=== PATIENT | female | born 1950 | race African-American/Black ===

== ENCOUNTER 2022-03-14 14:57 | Outpatient (REF) | payer MEDICARE, MEDICAID, SELFPAY ==
[2022-03-14 15:15] LABS: MANUAL DIFF FLAG NO
[2022-03-14 16:08] LABS: Basophils Percent Auto 0.5 % (0-2); Eosinophils Absolute Auto 0.2 X10*3/uL (0.0-0.4); Eosinophils Percent Auto 2.6 % (0-4); Hematocrit 43.2 % (37.0-47.0); Hemoglobin 14.4 g/dl (12.0-16.0); Imm Gran Abs Auto 0.01 X10*3/uL (0.00-0.03); Imm Gran Pct Auto 0.1 % (0.0-0.4); Lymphocytes Absolute Auto 2.7 X10*3/uL (1.2-4.9); Lymphocytes Percent Auto 31.3 % (20-40); Mean Corpuscular HGB Conc 33.3 g/dl (31.0-35.0); Mean Corpuscular Hemoglobin 30.2 pg (27.0-33.0); Mean Corpuscular Volume 90.6 fL (80.0-98.0); Mean Platelet Volume 10.4 fL (9.4-12.3); Monocytes Absolute Auto 0.8 X10*3/uL (0.1-1.2); Monocytes Percent Auto 9.3 % (2-11); Neutrophils Absolute Auto 4.8 x10*3/uL (2.0-8.3); Neutrophils Percent Auto 56.2 % (45-73); Platelet Count 307 X10*3/uL (160-400); Red Blood Count 4.77 X10*6/uL (4.20-5.50); Red Cell Distribution Width 13.9 % (11.0-16.0); White Blood Count 8.5 X10*3/uL (4.8-10.8)
[2022-03-14 16:34] LABS: Alanine Aminotransferase 10 U/L (0-31); Albumin Level 4.7 g/dL (3.5-5.0); Alkaline Phosphatase 128 U/L (39-117); Anion Gap 17 (12-20); Aspartate Amino Transferase 16 U/L (5-31); Bilirubin Total 0.2 mg/dL (0.0-1.0); Blood Urea Nitrogen 9 mg/dL (9-16); C Reactive Protein 0.36 mg/dL (< or = 0.50); Carbon Dioxide 26 mmol/L (22-29); Chloride 104 mmol/L (96-108); Estimated Glomerular Filt Rate > 60; Glucose Random 87 mg/dL (60-115); Phosphorus 3.5 mg/dL (2.7-4.5); Potassium 4.6 mmol/L (3.3-5.1); Sodium 142 mmol/L (135-145); Total Protein 7.7 g/dL (6.5-8.0)
[2022-03-14 16:43] LABS: Rheumatoid Factor < 15.0 IU/mL (<15.0)
[2022-03-14 16:45] LABS: Erythrocyte Sedimentation Rate 7 MM/HR (0-20)
[2022-03-14 16:52] LABS: TSH reflex Free T4 1.76 uIU/mL (0.32-4.0)
[2022-03-15 12:55] LABS: PTHI 81 pg/mL (16-77)
[2022-03-18 18:52] LABS: Cyclic Citrullinated Peptide <16 UNITS
[2022-03-20 16:51] LABS: Vitamin D 25-OH, D2 <4 ng/mL; Vitamin D 25-OH, D3 41 ng/mL; Vitamin D 25-OH, Total 41 ng/mL (30-100)
== END 2022-03-14 14:58 | disposition home or self-care (01) ==
LOC: HO.LAB 14:57
PROVIDERS: Visit Provider Student in an Organized Health Care Education/Training Program
DX: M81.0 Age-related osteoporosis without current pathological fracture (principal)
CPT/HCPCS: 36415; 80053; 82306; 83970; 84100; 84443; 85025; 85652; 86140; 86200; 86431; 99202

== ENCOUNTER → 2022-06-14 12:44 | Outpatient (BNVA) | payer MEDICARE, MEDICAID, SELFPAY | PROVIDERS: PCP Internal Medicine; Visit Provider Student in an Organized Health Care Education/Training Program | DX: M80.80XA Other osteoporosis with current pathological fracture, unspecified site, initial encounter for fracture (principal) | CPT/HCPCS: 99212 ==

== ENCOUNTER 2023-05-15 13:53 | Outpatient (AMB) | payer MEDICARE, MEDICAID, SELFPAY ==
--- NOTE | 2023-05-15 14:07 | A.OFFVIS_ITS ---
Intake Vital Signs 05/15/23 14:25 Height 5 ft 4 in Weight 163 lb 5.8 oz BMI 28.0 BP 110/70 Blood Pressure Location Lt brachial Position Sitting Pulse 91 Pulse Source Pulse Oximeter Temp 97.2 F Temp Source Skin Pulse Oximetry (%) 96 Oxygen Delivery Method Room Air Intake Visit Reasons: Osteoporosis Intake Note: Pt last seen 06/14/22 presents today for follow up and test results Loading Machine Tool Setter Required: Yes Loading Machine Tool Setter Name: Danilo [id number] Information Interpreted: clinical only Accompanied by: Spouse Allergies fentanyl Adverse Reaction (Unknown, Verified 05/15/23 14:08) Rash Penicillins Adverse Reaction (Unknown, Verified 05/15/23 14:08) Swelling Medication List - Last Reconciled 05/15/23 by Sterling Galindo MD acetaminophen ER (Mapap Arthritis Pain) 650 mg PO Q8H PRN baclofen 10 mg PO TID cetirizine 10 mg PO DAILY denosumab (Prolia) 60 mg subcut [id number] esomeprazole magnesium (Nexium) 20 mg PO DAILY famotidine 20 mg PO BID lamotrigine 50 mg PO BID tramadol 50 - 100 mg PO QID PRN HPI HPI Comments History of Present Illness Details This is a 73-year-old female with history of osteoporosis with fracture presents for follow-up. She has no complaints. She has been doing the Prolia injections at home. Most recent Prolia injection was March of 2023. Denies any side effects related to the Prolia. Has not had any recent falls or fractures. Initial history: This is a 71-year-old female with a past medical history of GERD, fibromyalgia and osteoporosis. Condition started in 1997 when she had vertebral fracture. She was diagnosed with osteoporosis. Around 2007 she was started on Fosamax but could not tolerate it due to GI upset. She was then switched to nasal calcitonin which she took for about 1 year, then switched to Forteo for 2 years. She noted that her bone density improved after the Forteo, she was then switched to nasal calcitonin for a 1 more year and another year on Boniva injection. She has not been on any osteoporosis medications since 2012. in winter she severe back pain and she was found to have another vertebral fracture. She is referred for evaluation of osteoporosis. Patient is a chronic smoker. Denies any chest pain shortness of breath. No history cardiovascular disease. [facility] Medical History Cervical disc disease Lumbar radiculopathy Fibromyalgia GERD (gastroesophageal reflux disease) Surgical History H/O cervical spine surgery Hx of cholecystectomy Hx of colonoscopy Family History Mother Aneurysm COPD (chronic obstructive pulmonary disease) Osteoporosis Father Cancer Other Coronary artery disease Hypertension Social History Household Members: Spouse Alcohol intake: current Alcohol intake frequency: does not drink Patient Tobacco Use Status: Current everyday Tobacco user Tobacco use type: Cigarette Cigarettes Per Day: 8 Current occupational status: retired Current occupation: [employer] Review of Systems Const All systems reviewed & are unremarkable except as noted in HPI and below Physical Exam Vital Signs: Last Vital Signs Temp 97.2 F 05/15/23 14:25 Pulse 91 05/15/23 14:25 BP 110/70 05/15/23 14:25 Pulse Ox 96 05/15/23 14:25 Oxygen Delivery Method Room Air 05/15/23 14:25 BMI result Body Mass Index 28.0 Const General: cooperative, healthy appearing, comfortable, no acute distress and well developed Nutritional Appearance: average body habitus Orientation/consciousness: patient oriented x3 Limitations: no limitations HEENT Head: Yes normocephalic and Yes atraumatic Mouth: Normal oral and palatal mucosa present Resp Effort & Inspection: normal respiratory effort and able to speak in complete sentences Auscultation: clear to auscultation bilaterally Cardio Rate: regular rate Rhythm: regular rhythm Heart sounds: S1 normal heart sound present and S2 normal heart sound present GI Inspection: No distended Palpation (GI): Soft to palpation and nontender Skin General skin exam: no rashes or lesions noted Neuro General: patient oriented x3 Extrem Other: mild osteoarthritic changes hands with no synovitis. Few fibromyalgia tender points Results Reviewed Results Reviewed: DEXA scan 10/2020 AP spine T-score -3.2 Femoral right T-score -2.2 Total hip right T-score -2.4 DEXA scan 09/2017 AP spine T-score -2.6 ?femoral Neck right -2.4 Total hip right -2.4 Assessment & Plan Assessment & Plan (1) Osteoporosis with fracture: Comment: Vertebral fracture 1997 Fosamax started 2007 caused GI upset Nasal calcitonin started 2007 for 1 year Switched to Forteo around [id number] nasal calcitonin 2011 to 2012 Boniva [phone]... Then nothing Vertebral fracture 2020 Prolia started 03/2022 Code(s): M80.80XA - Other osteoporosis with current pathological fracture, unspecified site, initial encounter for fracture Qualifiers: Osteoporosis type: age-related Site of pathological fracture: vertebra Encounter type: initial encounter Qualified Code(s): M80.08XA - Age-related osteoporosis with current pathological fracture, vertebra(e), initial encounter for fracture Plan: ?This is a 72-year-old female with osteoporosis with multiple fractures?presents for follow up. She has done 3 Prolia injections so far. Most recent injection was 03/2023. She does the injections at home. They get shipped to her home. Next injection 09/2022. Plan to repeat DEXA at 09/2022. Follow-up in October 2022. Labs before next visit If patient's bone density scan does not improve then will consider a more potent agent such as Romosuzumab Continue vitamin-D supplement Plan I spent 23 minutes reviewing patient's chart, evaluating patient, ordering diagnostic workup, counseling patient and documenting in the chart Orders: Orders Complete Blood Count Auto Diff 6 Months M80.80XA - Other osteoporosis with current pathological fracture, unspecified site, initial encounter for fracture Comprehensive Met. Panel 6 Months M80.80XA - Other osteoporosis with current pathological fracture, unspecified site, initial encounter for fracture XR DEXA axial skeleton 09/17/23 M80.80XA - Other osteoporosis with current pathological fracture, unspecified site, initial encounter for fracture Vitamin D 25-OH (D2 and D3) 6 Months Z13.21 - Encounter for screening for nutritional disorder Coding Level of Care Code Est Pt Level 4 (31982) Diagnoses Pathological fracture of vertebra due to age-related osteoporosis, initial encounter M80.08XA Osteoporosis type: age-related Site of pathological fracture: vertebra Encounter type: initial encounter
[2023-05-15 14:25] VITALS: BP 110/70; PULSE 91; TEMP 36.2; O2SAT 96; BMI 28.0
== END 2023-05-15 14:55 | disposition home or self-care (01) ==
PROVIDERS: PCP Internal Medicine; Visit Provider Student in an Organized Health Care Education/Training Program
DX: M80.08XA Age-related osteoporosis with current pathological fracture, vertebra(e), initial encounter for fracture (principal)
CPT/HCPCS: 99214

== ENCOUNTER → 2023-05-15 13:53 | Outpatient (BNVA) | payer MEDICARE, MEDICAID, SELFPAY | PROVIDERS: PCP Internal Medicine; Visit Provider Student in an Organized Health Care Education/Training Program | DX: M80.08XD Age-related osteoporosis with current pathological fracture, vertebra(e), subsequent encounter for fracture with routine healing (principal) | CPT/HCPCS: 99212 ==

== ENCOUNTER 2023-11-05 13:31 | Outpatient (REF) | payer MEDICARE, MEDICAID, SELFPAY ==
--- NOTE | ~2023-11-05 | MM_ITS ---
EXAMINATION: BONE DENSITOMETRY CLINICAL INDICATION: Other osteoporosis without current pathological fracture, unspecified. COMPARISON: This is the patient's baseline examination. TECHNIQUE: Using a Tablefinder DXA System (software version: 13.1) manufactured by [employer], dual-energy x-ray absorptiometry was performed of the lumbar spine and left hip. The images are of good technical quality. Summary results are attached. FINDINGS: LEFT FEMUR, NECK: BMD 0.713 g/cm2, Z-score -0.7, T-score -2.3, osteopenia. LEFT FEMUR, TOTAL: BMD 0.671 g/cm2, Z-score -1.3, T-score -2.7, osteoporosis. AP SPINE L1-L4: BMD 0.957 g/cm2, Z-score -0.4, T-score -1.9, osteopenia. IDENTIFIED RISK FACTORS: Anticonvulsant, height loss, history of fracture (adult), low calcium intake, early menopause, secondary osteoporosis, tobacco user (current smoker), osteoporosis. HISTORY OF FRACTURE: Spine. MEDICATIONS: Prolia, vitamin D. MM/XR DEXA axial skeleton IMPRESSION: 1. DIAGNOSIS: Severe osteoporosis based on the lowest T-score value of -2.7 in the total femur applying World Health Organization criteria. 2. 10-YEAR FRACTURE RISK PREDICTION, FRAX: According to the guidelines, FRAX calculation should only be performed on patients in the osteopenia bone density category. Therefore, FRAX was not performed on this patient.? 3. Treatment Recommendations: NOF guidelines recommend consideration for treatment in postmenopausal women and men age 50 and older presenting with the following: -A hip or vertebral (clinical or morphometric) fracture. -T-score less than or equal to -2.5 at the femoral neck or spine after appropriate evaluation to exclude secondary causes. -Low bone mass at the hip or spine and a 10-year fracture probability by FRAX of greater than or equal to 3% for hip fracture or greater than or equal to 20% for major osteoporotic fracture based on the [place] adapted WHO algorithm. 4. Other Recommendations: All treatment decisions require clinical judgment and consideration of individual patient factors, including patient preferences, comorbidities, previous drug use, risk factors not captured in the FRAX model (e.g. frailty, falls, vitamin D deficiency, increased bone turnover, interval significant decline in bone density) and possible under or overestimation of fracture risk by FRAX. Additional medical evaluation for secondary cause of low bone mineral density may be appropriate. FUTURE SCAN RECOMMENDATION: People with diagnosed cases of osteoporosis or at high risk for fracture should have regular bone mineral density tests. For patients eligible for Medicare, routine testing is allowed once every 2 years. The testing frequency can be increased to one year for patients who have rapidly progressing disease, those who are receiving or discontinuing medical therapy to restore bone mass, or have additional risk factors.
[2023-11-05 13:44] LABS: MANUAL DIFF FLAG NO
[2023-11-05 14:26] LABS: Basophils Percent Auto 0.5 % (0-2); Eosinophils Absolute Auto 0.3 X10*3/uL (0.0-0.4); Eosinophils Percent Auto 3.5 % (0-4); Hematocrit 43.5 % (37.0-47.0); Hemoglobin 14.6 g/dl (12.0-16.0); Imm Gran Abs Auto 0.02 X10*3/uL (0.00-0.03); Imm Gran Pct Auto 0.3 % (0.0-0.4); Lymphocytes Absolute Auto 2.4 X10*3/uL (1.2-4.9); Lymphocytes Percent Auto 30.6 % (20-40); Mean Corpuscular HGB Conc 33.6 g/dl (31.0-35.0); Mean Corpuscular Hemoglobin 30.9 pg (27.0-33.0); Mean Platelet Volume 9.9 fL (9.4-12.3); Monocytes Absolute Auto 0.8 X10*3/uL (0.1-1.2); Monocytes Percent Auto 10.2 % (2-11); Neutrophils Absolute Auto 4.2 x10*3/uL (2.0-8.3); Neutrophils Percent Auto 54.9 % (45-73); Platelet Count 274 X10*3/uL (160-400); Red Blood Count 4.73 X10*6/uL (4.20-5.50); Red Cell Distribution Width 13.9 % (11.0-16.0); White Blood Count 7.7 X10*3/uL (4.8-10.8)
[2023-11-05 14:49] LABS: Alanine Aminotransferase 12 U/L (0-31); Albumin Level 4.5 g/dL (3.5-5.0); Alkaline Phosphatase 85 U/L (39-117); Anion Gap 12 (12-20); Aspartate Amino Transferase 17 U/L (5-31); Bilirubin Total 0.4 mg/dL (0.0-1.0); Blood Urea Nitrogen 13 mg/dL (9-16); Calcium 9.4 mg/dL (8.4-10.2); Carbon Dioxide 26 mmol/L (22-29); Chloride 106 mmol/L (96-108); Estimated Glomerular Filt Rate > 60; Glucose Random 87 mg/dL (60-115); Potassium 4.3 mmol/L (3.3-5.1); Sodium 140 mmol/L (135-145); Total Protein 7.9 g/dL (6.5-8.0)
[2023-11-09 16:49] LABS: Vitamin D 25-OH, D2 <4 ng/mL; Vitamin D 25-OH, D3 40 ng/mL; Vitamin D 25-OH, Total 40 ng/mL (30-100)
== END 2023-11-05 13:32 | disposition home or self-care (01) ==
LOC: HO.MAMMO 13:31
PROVIDERS: PCP Internal Medicine; Visit Provider Student in an Organized Health Care Education/Training Program
DX: M80.08XA Age-related osteoporosis with current pathological fracture, vertebra(e), initial encounter for fracture (principal); Z13.21 Encounter for screening for nutritional disorder
CPT/HCPCS: 36415; 77080; 80053; 82306; 85025

== ENCOUNTER 2023-11-10 13:21 | Outpatient (AMB) | payer MEDICARE, MEDICAID, SELFPAY ==
--- NOTE | 2023-11-10 13:37 | MHC.OFFVIS ---
Vital Signs 11/10/23 13:38 Height 5 ft 4 in Weight 162 lb 0.636 oz BMI 27.8 BP 128/72 Blood Pressure Location Rt brachial Position Sitting Pulse 86 Pulse Source Pulse Oximeter Pulse Oximetry (%) 96 Oxygen Delivery Method Room Air Intake Visit Reasons: Osteoporosis/CM Intake Note: Pt seen today for Osteoporosis follow up. She does her Prolia at home. Dean Of Boys Required: Yes Dean Of Boys Name: [id number] Accompanied by: Spouse Allergies fentanyl Adverse Reaction (Unknown, Verified 11/10/23 13:52) Rash Penicillins Adverse Reaction (Unknown, Verified 11/10/23 13:52) Swelling Medication List - Last Reconciled 11/10/23 by Sterling Galindo MD acetaminophen ER (Mapap Arthritis Pain) 650 mg PO Q8H PRN baclofen 10 mg PO TID cetirizine 10 mg PO DAILY cholecalciferol (vitamin D3) 50 mcg PO DAILY esomeprazole magnesium (Nexium) 20 mg PO DAILY famotidine 20 mg PO BID lamotrigine 50 mg PO BID Prolia (denosumab) 60 mg subcut [id number] NS tramadol 50 - 100 mg PO QID PRN HPI Comments Details: This is a 73-year-old female with history of osteoporosis with fracture presents for follow-up. She has no complaints. She has been doing the Prolia injections at home. Most recent Prolia injection was 09/2022. Denies any side effects related to the Prolia. Has not had any recent falls or fractures. Initial history: This is a 71-year-old female with a past medical history of GERD, fibromyalgia and osteoporosis. Condition started in 1997 when she had vertebral fracture. She was diagnosed with osteoporosis. Around 2007 she was started on Fosamax but could not tolerate it due to GI upset. She was then switched to nasal calcitonin which she took for about 1 year, then switched to Forteo for 2 years. She noted that her bone density improved after the Forteo, she was then switched to nasal calcitonin for a 1 more year and another year on Boniva injection. She has not been on any osteoporosis medications since 2012. in winter of 2020 she severe back pain and she was found to have another vertebral fracture. She is referred for evaluation of osteoporosis. Patient is a chronic smoker. Denies any chest pain shortness of breath. No history cardiovascular disease. [facility] Medical History Cervical disc disease Lumbar radiculopathy Fibromyalgia GERD (gastroesophageal reflux disease) Surgical History H/O cervical spine surgery Hx of cholecystectomy Hx of colonoscopy Family History Mother Aneurysm COPD (chronic obstructive pulmonary disease) Osteoporosis Father Cancer Other Coronary artery disease Hypertension Social History Household Members: Spouse Alcohol intake: current Alcohol intake frequency: does not drink Patient Tobacco Use Status: Current everyday Tobacco user Tobacco use type: Cigarette Cigarettes Per Day: 8 Current occupational status: retired Current occupation: SALESPERSON [employer] Female Reproductive History Menstrual Total pregnancies: 0 Review of Systems Const All systems reviewed & are unremarkable except as noted in HPI and below Physical Exam Vital Signs: Last Vital Signs Pulse 86 11/10/23 13:38 BP 128/72 11/10/23 13:38 Pulse Ox 96 11/10/23 13:38 Oxygen Delivery Method Room Air 11/10/23 13:38 BMI result Body Mass Index 27.8 Const General: cooperative, healthy appearing, comfortable, no acute distress and well developed Nutritional Appearance: average body habitus Orientation/consciousness: patient oriented x3 Limitations: no limitations HEENT Head: Yes normocephalic and Yes atraumatic Mouth: Normal oral and palatal mucosa present Resp Effort & Inspection: normal respiratory effort and able to speak in complete sentences Auscultation: clear to auscultation bilaterally Cardio Rate: regular rate Rhythm: regular rhythm Heart sounds: S1 normal heart sound present and S2 normal heart sound present GI Inspection: No distended Palpation (GI): Soft to palpation and nontender Skin General skin exam: no rashes or lesions noted Neuro General: patient oriented x3 Extrem Other: mild osteoarthritic changes hands with no synovitis. Few fibromyalgia tender points Results Reviewed Results Reviewed: DEXA scan 09/2017 AP spine T-score -2.6 ?femoral Neck right -2.4 Total hip right -2.4 DEXA scan 10/2020 AP spine T-score -3.2 Femoral right T-score -2.2 Total hip right T-score -2.4 DEXA 09/2023 FINDINGS: LEFT FEMUR, NECK: BMD 0.713 g/cm2, Z-score -0.7, T-score -2.3, osteopenia. LEFT FEMUR, TOTAL: BMD 0.671 g/cm2, Z-score -1.3, T-score -2.7, osteoporosis. AP SPINE L1-L4: BMD 0.957 g/cm2, Z-score -0.4, T-score -1.9, osteopenia. Assessment & Plan Assessment & Plan (1) Osteoporosis with fracture: Comment: Vertebral fracture 1997 Fosamax started 2007 caused GI upset Nasal calcitonin started 2007 for 1 year Switched to Forteo around [id number] nasal calcitonin 2011 to 2012 Boniva [phone]... Then nothing Vertebral fracture 2020 Prolia started 03/2022 Code(s): M80.80XA - Other osteoporosis with current pathological fracture, unspecified site, initial encounter for fracture Category: Medical Qualifiers: Osteoporosis type: age-related Site of pathological fracture: vertebra Encounter type: initial encounter Qualified Code(s): M80.08XA - Age-related osteoporosis with current pathological fracture, vertebra(e), initial encounter for fracture Plan: ?This is a 72-year-old female with osteoporosis with multiple fractures?presents for follow up. She has done 4 Prolia injections so far. Most recent injection was 09/2023. She does the injections at home. Her bone density significantly improved at her L-spine. Her density at the hip is about the same (note not the same hip was imaged) Continue with Prolia subcu injections. Next injection 03/2024. Vitamin-D level at target. Continue vitamin-D 2000 units daily . Advised patient to avoid falls as much as possible. Start doing weight-bearing exercises Plan to repeat DEXA/2025 Labs before next visit in 6 months Plan I spent 16 minutes reviewing patient's chart, evaluating patient, ordering diagnostic workup, counseling patient and documenting in the chart Orders: Orders Basic Metabolic Panel 6 Months M80.08XA - Age-related osteoporosis with current pathological fracture, vertebra(e), initial encounter for fracture Coding Level of Care Code Est Pt Level 3 (37605) Diagnoses Pathological fracture of vertebra due to age-related osteoporosis, initial encounter M80.08XA Osteoporosis type: age-related Site of pathological fracture: vertebra Encounter type: initial encounter
[2023-11-10 13:38] VITALS: BP 128/72; PULSE 86; O2SAT 96; BMI 27.8
== END 2023-11-10 14:06 | disposition home or self-care (01) ==
PROVIDERS: PCP Internal Medicine; Visit Provider Student in an Organized Health Care Education/Training Program
DX: M80.08XA Age-related osteoporosis with current pathological fracture, vertebra(e), initial encounter for fracture (principal)
CPT/HCPCS: 99213

== ENCOUNTER → 2023-11-10 13:21 | Outpatient (BNVA) | payer MEDICARE, MEDICAID, SELFPAY | PROVIDERS: PCP Internal Medicine; Visit Provider Student in an Organized Health Care Education/Training Program | DX: M80.80XA Other osteoporosis with current pathological fracture, unspecified site, initial encounter for fracture (principal) | CPT/HCPCS: 99212 ==

== ENCOUNTER 2024-04-30 10:22 | Outpatient (REF) | payer MEDICARE, MEDICAID, SELFPAY ==
[2024-04-30 12:06] LABS: Anion Gap 10 (12-20); Blood Urea Nitrogen 14 mg/dL (9-16); Calcium 9.7 mg/dL (8.4-10.2); Carbon Dioxide 27 mmol/L (22-29); Chloride 107 mmol/L (96-108); Estimated Glomerular Filt Rate 49; Glucose Random 95 mg/dL (60-115); Potassium 4.9 mmol/L (3.3-5.1); Sodium 139 mmol/L (135-145)
== END 2024-04-30 10:23 | disposition home or self-care (01) ==
LOC: HO.10HDL 10:22
PROVIDERS: Visit Provider Student in an Organized Health Care Education/Training Program
DX: M80.08XA Age-related osteoporosis with current pathological fracture, vertebra(e), initial encounter for fracture (principal)
CPT/HCPCS: 36415; 80048

== ENCOUNTER 2024-05-13 13:01 | Outpatient (AMB) | payer MEDICARE, MEDICAID, SELFPAY ==
--- NOTE | 2024-05-13 13:16 | A.OFFVIS_ITS ---
Vital Signs 05/13/24 13:20 Height 5 ft 4 in Weight 156 lb 4.924 oz BMI 26.8 BP 118/70 Blood Pressure Location Lt brachial Position Sitting Pulse 76 Pulse Source Pulse Oximeter Pulse Oximetry (%) 98 Oxygen Delivery Method Room Air Intake Visit Reasons: osteoporosis Intake Note: Patient presents for Osteoporosis. Fishing Rod Marker Required: Yes Fishing Rod Marker Language: Alumni Relations Manager Services: Fishing Rod Marker Present Fishing Rod Marker Name: [id number] Information Interpreted: non-clinical & clinical Allergies fentanyl Adverse Reaction (Unknown, Verified 05/13/24 13:19) Rash Penicillins Adverse Reaction (Unknown, Verified 05/13/24 13:19) Swelling Medication List - Last Reconciled 05/13/24 by Sterling Galindo MD acetaminophen ER (Mapap Arthritis Pain) 650 mg PO Q8H PRN baclofen 10 mg PO TID cetirizine 10 mg PO DAILY cholecalciferol (vitamin D3) 50 mcg PO DAILY esomeprazole magnesium (Nexium) 20 mg PO DAILY famotidine 20 mg PO BID lamotrigine 50 mg PO BID Prolia (denosumab) 60 mg subcut [id number] NS tramadol 50 - 100 mg PO QID PRN HPI Comments Details: This is a 73-year-old female with osteoporosis who presents for follow-up. She has no complaints. She has been doing the Prolia injections at home. Most recent Prolia injection was 03/2024. Denies any side effects related to the Prolia. Has not had any recent falls or fractures. Initial history: This is a 71-year-old female with a past medical history of GERD, fibromyalgia and osteoporosis. Condition started in 1997 when she had vertebral fracture. She was diagnosed with osteoporosis. Around 2007 she was started on Fosamax but could not tolerate it due to GI upset. She was then switched to nasal calcitonin which she took for about 1 year, then switched to Forteo for 2 years. She noted that her bone density improved after the Forteo, she was then switched to nasal calcitonin for a 1 more year and another year on Boniva injection. She has not been on any osteoporosis medications since 2012. in winter of 2020 she severe back pain and she was found to have another vertebral fracture. She is referred for evaluation of osteoporosis. Patient is a chronic smoker. Denies any chest pain shortness of breath. No history cardiovascular disease. [facility] Medical History Cervical disc disease Lumbar radiculopathy Fibromyalgia GERD (gastroesophageal reflux disease) Surgical History H/O cervical spine surgery Hx of cholecystectomy Hx of colonoscopy Family History Mother Aneurysm COPD (chronic obstructive pulmonary disease) Osteoporosis Father Cancer Other Coronary artery disease Hypertension Social History Household Members: Spouse Alcohol intake: current Alcohol intake frequency: does not drink Patient Tobacco Use Status: Current everyday Tobacco user Tobacco use type: Cigarette Cigarettes Per Day: 8 Current occupational status: 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 Reproductive History Menstrual Total pregnancies: 0 Physical Exam Vital Signs: Last Vital Signs Pulse 76 05/13/24 13:20 BP 118/70 05/13/24 13:20 Pulse Ox 98 05/13/24 13:20 Oxygen Delivery Method Room Air 05/13/24 13:20 BMI result Body Mass Index 26.8 Const General: cooperative, healthy appearing, comfortable, no acute distress and well developed Nutritional Appearance: average body habitus Orientation/consciousness: patient oriented x3 Limitations: no limitations HEENT Other: Yellow teeth Head: Yes normocephalic and Yes atraumatic Mouth: Normal oral and palatal mucosa present Resp Effort & Inspection: normal respiratory effort and able to speak in complete sentences Auscultation: clear to auscultation bilaterally Cardio Rate: regular rate Skin General skin exam: no rashes or lesions noted Neuro General: patient oriented x3 Extrem Other: mild osteoarthritic changes hands with no synovitis. Few fibromyalgia tender points Results Reviewed Results Reviewed: DEXA scan 09/2017 AP spine T-score -2.6 ?femoral Neck right -2.4 Total hip right -2.4 DEXA scan 10/2020 AP spine T-score -3.2 Femoral right T-score -2.2 Total hip right T-score -2.4 DEXA 09/2023 FINDINGS: LEFT FEMUR, NECK: BMD 0.713 g/cm2, Z-score -0.7, T-score -2.3, osteopenia. LEFT FEMUR, TOTAL: BMD 0.671 g/cm2, Z-score -1.3, T-score -2.7, osteoporosis. AP SPINE L1-L4: BMD 0.957 g/cm2, Z-score -0.4, T-score -1.9, osteopenia. Assessment & Plan Assessment & Plan (1) Osteoporosis with fracture: Comment: Vertebral fracture 1997 Fosamax started 2007 caused GI upset Nasal calcitonin started 2007 for 1 year Switched to Forteo around [id number] nasal calcitonin 2011 to 2012 Boniva [phone]... Then nothing Vertebral fracture 2020 Prolia started 03/2022 Code(s): M80.80XA - Other osteoporosis with current pathological fracture, unspecified site, initial encounter for fracture Category: Medical Qualifiers: Osteoporosis type: age-related Site of pathological fracture: vertebra Encounter type: initial encounter Qualified Code(s): M80.08XA - Age-related osteoporosis with current pathological fracture, vertebra(e), initial encounter for fracture Plan: ?This is a 73-year-old female with osteoporosis with multiple fractures?presents for follow up. She has done 5 Prolia injections so far. Most recent injection was 03/2024. She does the injections at home. Her bone density 09/2023 significantly improved at her L-spine. Her density at the hip is about the same ( not the same hip was imaged) Continue with Prolia subcu injections. Next injection 09/2023. Continue vitamin-D 2000 units daily . Advised patient to avoid falls as much as possible. Start doing weight-bearing exercises. I provided patient with a booklet on some weight-bearing exercises for osteoporosis. Patient continues to smoke about 10 cigarettes a day. Discussed with patient that smoking is associating with the bone and advised patient to quit Plan to repeat DEXA 09/2025 Labs before next visit in 6 months Plan I spent 16 minutes reviewing patient's chart, evaluating patient, ordering diagnostic workup, counseling patient and documenting in the chart Orders: Orders Vitamin D 25-OH Total 6 Months E55.9 - Vitamin D deficiency, unspecified Basic Metabolic Panel 6 Months M80.08XA - Age-related osteoporosis with current pathological fracture, vertebra(e), initial encounter for fracture Coding Level of Care Code Est Pt Level 3 (08196) Diagnoses Pathological fracture of vertebra due to age-related osteoporosis, initial encounter M80.08XA Osteoporosis type: age-related Site of pathological fracture: vertebra Encounter type: initial encounter
[2024-05-13 13:20] VITALS: BP 118/70; PULSE 76; O2SAT 98; BMI 26.8
== END 2024-05-13 13:39 | disposition home or self-care (01) ==
PROVIDERS: PCP Internal Medicine; Visit Provider Student in an Organized Health Care Education/Training Program
DX: M80.08XA Age-related osteoporosis with current pathological fracture, vertebra(e), initial encounter for fracture (principal)
CPT/HCPCS: 99213

== ENCOUNTER → 2024-05-13 13:01 | Outpatient (BNVA) | payer MEDICARE, MEDICAID, SELFPAY | PROVIDERS: PCP Internal Medicine; Visit Provider Student in an Organized Health Care Education/Training Program | DX: M80.08XA Age-related osteoporosis with current pathological fracture, vertebra(e), initial encounter for fracture (principal); M79.7 Fibromyalgia; E55.9 Vitamin D deficiency, unspecified; X58.XXXA Exposure to other specified factors, initial encounter; Y93.9 Activity, unspecified; Y92.9 Unspecified place or not applicable; Y99.9 Unspecified external cause status | CPT/HCPCS: 99212 ==

== ENCOUNTER 2024-09-25 09:33 | Outpatient (REF) | payer MEDICARE, MEDICAID, SELFPAY ==
[2024-09-25 11:07] LABS: Alanine Aminotransferase 17 U/L (0-31); Albumin Level 4.4 g/dL (3.5-5.0); Alkaline Phosphatase 85 U/L (39-117); Anion Gap 14 (12-20); Aspartate Amino Transferase 19 U/L (5-31); Bilirubin Total 0.3 mg/dL (0.0-1.0); Blood Urea Nitrogen 19 mg/dL (9-16); Calcium 10.5 mg/dL (8.4-10.2); Carbon Dioxide 29 mmol/L (22-29); Chloride 105 mmol/L (96-108); Estimated Glomerular Filt Rate 58; Potassium 4.5 mmol/L (3.3-5.1); Sodium 143 mmol/L (135-145); Total Protein 7.8 g/dL (6.5-8.0)
[2024-09-25 11:33] LABS: Glucose Random 52 mg/dL (60-115)
[2024-09-30 15:18] LABS: Vitamin D 25-OH, D2 <4 ng/mL; Vitamin D 25-OH, D3 43 ng/mL; Vitamin D 25-OH, Total 43 ng/mL (30-100)
== END 2024-09-25 09:34 | disposition home or self-care (01) ==
LOC: HO.LAB 09:33
PROVIDERS: PCP Internal Medicine; Visit Provider Student in an Organized Health Care Education/Training Program
DX: M80.08XA Age-related osteoporosis with current pathological fracture, vertebra(e), initial encounter for fracture (principal)
CPT/HCPCS: 36415; 80053; 82306